=== PATIENT | male | born 1985 | race Caucasian/White ===

== ENCOUNTER 2017-11-04 08:06 | Emergency (ER) | payer BC, OTHER ==
[~2017-11-04] VITALS: Ht 185.4 cm; Wt 113.4 kg
[2017-11-04] MEDS ORDERED: NORFLEX100 MG PO (08:40)
[2017-11-04] MEDS ORDERED: NAPROSYN500 MG PO (08:40)
== END 2017-11-04 09:00 | disposition home or self-care (01) ==
LOC: ER 08:06
DX: S09.90XA Unspecified injury of head, initial encounter (principal); G43.909 Migraine, unspecified, not intractable, without status migrainosus; W00.0XXA Fall on same level due to ice and snow, initial encounter; Y93.89 Activity, other specified; Y92.89 Other specified places as the place of occurrence of the external cause; Y99.8 Other external cause status